=== PATIENT | female | born 1960 | race Caucasian/White ===

== ENCOUNTER → 2017-01-23 13:24 | Emergency (ER) | payer OTHER ==
[2017-01-23 13:35] VITALS: BP 147/77
--- NOTE | 2017-01-23 15:40 | ED ---
Lower Extremity - HPI Summary HPI Summary: Pt here w/ fall from stool she was standing on this morning around 10am. Fell and twisted her Rt leg - not sure how as it happened so quickly. Was helping daughter at her house in [place] - iced knee on ride back to here. Denies hitting her head and sustaining any other injuries. Has pain in Rt knee and Rt ankle. Rt knee is more painful along lateral aspect - swelling, bruising, tender and hurts to move from 90 degrees of flexion - WEIHGT BEAINR? Rt ankle hurts as well along lateral aspect but not as bad as knee. Denies thigh or hip pain. Feels like her baseline sciatica is acting up a little but no freddie numbness, tingling, weakness or change in bowel/bladder habits - no back pain. Took 400mg ibuprofen just before coming into tx room. - History of Current Complaint Chief Complaint: EDExtremityLower Stated Complaint: RIGHT LEG INJURY Time Seen by Provider: 01/23/17 15:15 Hx Obtained From: Patient, Family/[employer] - Pain Intensity: 7 - Allergies/Home Medications Allergies/Adverse Reactions: Allergies Allergy/AdvReac Type Severity Reaction Status Date / Time Codeine Allergy GI Upset Verified 08/14/13 11:01 PMH/Surg Hx/FS Hx/Imm Hx Previously Healthy: Yes Endocrine/Hematology History: Denies: Hx Anticoagulant Therapy, Hx Blood Disorders Cardiovascular History: Denies: Hx Pacemaker/ICD Sensory History: Denies: Hx Hearing Aid Neurological History: Reports: Other Neuro Impairments/Disorders - intermittent "sciatica" Psychiatric History: Reports: Hx Anxiety - prozac, Hx Depression Denies: Hx Panic Disorder - Surgical History Surgery Procedure, Year, and Place: TUBAL LIGATION Infectious Disease History: No Infectious Disease History: Denies: Traveled Outside the [place] in Last 30 Days - Family History Known Family History: Positive: None - Social History Lives: With Family Alcohol Use: Rare Hx Substance Use: No Substance Use Type: Reports: None Hx Tobacco Use: No Smoking Status (MU): Never Smoked Tobacco Review of Systems Constitutional: Negative Negative: Fatigue Eyes: Negative Negative: Photophobia, Blurred Vision, Diplopia ENT: Negative Negative: Dental Pain Cardiovascular: Negative Negative: Chest Pain Respiratory: Negative Negative: Shortness Of Breath Gastrointestinal: Negative Negative: Abdominal Pain, Vomiting, Nausea Positive: no symptoms reported Musculoskeletal: Other - see HPI Skin: Other - see HPI - knee Neurological: Negative Negative: Headache, Weakness, Paresthesia, Numbness, Syncope, Slurred Speech Psychological: Normal All Other Systems Reviewed And Are Negative: Yes Physical Exam Triage Information Reviewed: Yes Vital Signs On Initial Exam: Initial Vitals Temp Pulse Resp BP Pulse Ox 98.8 F 94 17 147/77 100 01/23/17 13:34 01/23/17 13:34 01/23/17 13:34 01/23/17 13:34 01/23/17 13:34 Vital Signs Reviewed: Yes Appearance: Positive: Well-Appearing, No Pain Distress - at rest - appears uncomfortable when attempting to perform knee exam - gaurding - doesn't want to move knee from flexed position, Well-Nourished Skin: Positive: Warm, Dry - mild edema and ecchymosis over lateral aspect of Rt knee Head/Face: Positive: Normal Head/Face Inspection Eyes: Positive: Normal, EOMI, KLAUS - no photophobia, Conjunctiva Clear ENT: Positive: Normal ENT inspection, Hearing grossly normal, Pharynx normal. Negative: Nasal drainage Dental: Negative: Dental Fracture @ Neck: Positive: Supple, Nontender Respiratory/Lung Sounds: Positive: Breath Sounds Present Cardiovascular: Positive: Pulses are Symmetrical in both Upper and Lower Extremities Musculoskeletal: Positive: Limited @ - RT knee, Rt ankle d/t pain - Rt knee and Rt lateral ankle TTP - thigh, foot NTTP - no gross deformity Neurological: Positive: Normal, Sensory/Motor Intact, Alert, Oriented to Person Place, Time, CN Intact II-III Psychiatric: Positive: Normal Procedures - Splinting Location: Rt knee Pre-Made Type: knee immobilizer Pre-Proc Neuro Vasc Exam: normal Post-Proc Neuro Vasc Exam: normal Diagnostics - Vital Signs Vital Signs Temp Pulse Resp BP Pulse Ox 01/23/17 13:34 98.8 F 94 17 147/77 100 - Laboratory Lab Statement: Any lab studies that have been ordered have been reviewed, and results considered in the medical decision making process. Lower Extremity Course/Dx - Diagnoses Provider Diagnoses: Fall involving stool as cause of accidental injury, Right knee sprain, Right ankle sprain Discharge - Discharge Plan Condition: Stable Disposition: HOME Patient Education Materials: Knee Sprain (ED), Crutch Instructions (ED), Knee Immobilizer (ED) Referrals: Eric Nicholson MD [Medical Doctor] - Delia Lu MD [Primary Care Provider] - Additional Instructions: Rest, ice, elevate You may take ibuprofen 600mg every 6 hours with food for pain, swelling You may also apply topical analgesic for pain relief (ie. biofreeze, etc) Wear immobilizer when you are up moving around - if you are sitting, remove and gently stretch the ankle and knee to prevent stiffness and muscle atrophy Use crutches to avoid weight bearing Follow-up with PCP in 1-2 weeks *if pain is worse, follow-up with orthopedics or return to ED
--- NOTE | 2017-01-23 15:58 | RAD ---
INDICATION: Right lower leg injury. TECHNIQUE: 2 views of the right lower leg were obtained. FINDINGS: The bones are normal alignment. No fracture is seen. IMPRESSION: NO EVIDENCE OF FRACTURE.
--- NOTE | 2017-01-23 16:00 | RAD ---
INDICATION: Right knee injury. TECHNIQUE: 4 views of the right knee were obtained. FINDINGS: The bones are in normal alignment. There is a small joint effusion present. No fracture is seen. Joint spaces appear maintained. IMPRESSION: SMALL JOINT EFFUSION, NO FRACTURE IS SEEN.
== END | disposition home or self-care (01) ==
LOC: ED 13:24
DX: S83.91XA Sprain of unspecified site of right knee, initial encounter (principal); S93.401A Sprain of unspecified ligament of right ankle, initial encounter; W19.XXXA Unspecified fall, initial encounter; Y93.9 Activity, unspecified; Y92.9 Unspecified place or not applicable
CPT/HCPCS: 99282